=== PATIENT | male | born 1970 | race Caucasian/White ===

== ENCOUNTER 2017-06-23 17:07 | Emergency (ER) | payer OTHER, SELFPAY ==
[2017-06-23] MEDS ORDERED: Lidocaine 1% w/Epinephrine 1:100K 30 ML VIAL ONE (17:16)
[2017-06-23] MEDS ORDERED: Bacitracin Zinc 1 Packet ONE (18:06)
== END 2017-06-23 18:09 | disposition home or self-care (01) ==
LOC: BURERS 17:07
DX: S61.411A Laceration without foreign body of right hand, initial encounter (principal); F17.210 Nicotine dependence, cigarettes, uncomplicated; W26.9XXA Contact with unspecified sharp object(s), initial encounter
CPT/HCPCS: 12002; J2001

== ENCOUNTER 2017-10-31 09:23 | Emergency (ER) | payer SELFPAY ==
[2017-10-31] MEDS ORDERED: Ketorolac Tromethamine 30 MG/ML VIAL ONE (09:28)
[2017-10-31] MEDS ORDERED: Ondansetron HCl/PF 4 MG/2 ML Vial ONE ×2 (09:35→10:32)
[2017-10-31 09:57] LABS: ALT (SGPT) 21 U/L (8-55); AST (SGOT) 20 U/L (5-34); Albumin 4.5 g/dL (3.5-5.0); Alkaline Phosphatase 64 U/L (40-150); Anion Gap 17 mmol/L (10-20); BUN (Urea Nitrogen) 16 mg/dL (8.9-20.6); Bilirubin, Total 0.8 mg/dL (0.2-1.2); Calc. Creatinine Clearance 0 mL/min (70-130); Calcium 9.8 mg/dL (7.8-10.44); Carbon Dioxide 18 mmol/L (22-29); Chloride 109 mmol/L (98-107); Estimated GFR-MDRD 88; Globulin 2.8 g/dL (2.4-3.5); Glucose 112 mg/dL (70-105); Lipase 24 U/L (8-78); Potassium 3.9 mmol/L (3.5-5.1); Protein, Total 7.3 g/dL (6.0-8.3); Sodium 140 mmol/L (136-145)
[2017-10-31 10:10] LABS: Hemoglobin 16.5 g/dL (14.0-18.0); Red Blood Cell (RBC) Count 5.68 mill/uL (4.70-6.10); White Blood Cell (WBC) Count 16.8 thou/uL (4.8-10.8)
[2017-10-31 10:11] LABS: #Basophils 0.2 thou/uL (0.0-0.2); #Eosinphils 0.5 thou/uL (0.0-0.7); #Lymphocytes 2.8 thou/uL (1.20-3.40); #Monocytes 0.4 thou/uL (0.11-0.59); #Neutrophils 12.9 thou/uL (1.40-6.50); %Basophils 1.1 % (0.0-1.0); %Eosinophils 2.8 % (0.0-10.0); %Lymphocytes 16.8 % (21.0-51.0); %Monocytes 2.7 % (0.0-10.0); %Neutrophils 76.6 % (42.0-75.0); Mean Corpuscular HGB CONC 36.2 g/dL (32.0-36.0); Mean Corpuscular Hemoglobin 29.1 pg (27.0-31.0); Mean Corpuscular Volume 80.4 fL (78.0-98.0); Mean Platelet Volume 7.5 fL (7.4-10.4); Platelet Count 290 thou/uL (130-400); RBC Distribution Width 11.1 % (11.5-14.5)
[2017-10-31 10:24] LABS: Clarity Slightly Cloudy (Clear); Leukocyte Negative (Negative); Nitrite Negative (Negative); Protein, Urine (Dipstick) 30 mg/dL (Neg-Trace)
[2017-10-31 10:25] LABS: Bilirubin Negative (Negative); Blood, Urine Large (Negative); Glucose, Urine (Dipstick) Negative (Negative); Urobilinogen 0.2 mg/dL (0.2-1.0)
[2017-10-31 10:32] LABS: Bacteria/HPF 2+ HPF (None Seen); RBC/HPF GREATER THAN 50-TNTC HPF (0-3); Squamous Epithelial 0-3 HPF (0-3); WBC/HPF 0-3 HPF (0-3)
[2017-10-31] MEDS ORDERED: Fentanyl 100 MCG/2 ML VIAL ONE (10:32)
--- NOTE | 2017-10-31 20:20 | CT ---
CT ABDOMEN AND PELVIS WITHOUT CONTRAST 10/31/[address] of the abdomen and pelvis was done using no oral or IV contrast . Axial slices were acquire d then coronal reconstructions were done. There is a 5 mm proximal right ureteral calculus causing mild to moderate right hydronephrosis. Bilat eral nonobstructing calculi are present in each kidney. There is a subtle low density area in the mid dle third of the left kidney laterally. Statistically, this is most likely a cyst, however, an electi ve ultrasound should be done to ensure that it is cystic and not solid. The lung bases are clear. the liver, spleen, pancreas, adrenal glands, gallbladder, and abdominal aor ta showed no acute findings within the limitations of a noncontrast study. There is already considera ble plaque formation in the distal abdominal aorta and proximal iliac arteries. The bowel is nondistended with no sign of obstruction or inflammatory change around it. No free air o r free fluid was seen. CT of the pelvis shows no pelvic masses, fluid collections, or inflammatory changes. IMPRESSION: 1. 5 mm proximal right ureteral calculus causing mild to moderate right hydronephrosis. 2. Bilateral renal calculi. 3. Vague lucency in the left kidney. More than likely a cyst, but an elective ultrasound must be done to prove this. Findings and need for followup discussed with Dr. Villanueva at 0958 on 10/31/17. POS: HOME
== END 2017-10-31 10:51 | disposition home or self-care (01) ==
LOC: BURERS 09:23
DX: N13.2 Hydronephrosis with renal and ureteral calculous obstruction (principal)
CPT/HCPCS: 74176; 80053; 81003; 81015; 83690; 85025; 96361; 96374; 96375; 96376; J1885; J2405; J3010